=== PATIENT | female | born 1970 | race Caucasian/White ===

== ENCOUNTER → 2016-09-07 | Outpatient (CLI) | payer BC ==
[~2016-09-07] MED LIST: FLAGYL500 MG PO
== END ==
LOC: LAB 08:24
DX: A04.7 Enterocolitis due to Clostridium difficile (principal); E55.9 Vitamin D deficiency, unspecified; F33.1 Major depressive disorder, recurrent, moderate; F33.2 Major depressive disorder, recurrent severe without psychotic features; F41.1 Generalized anxiety disorder; K59.1 Functional diarrhea; M15.8 Other polyosteoarthritis; R19.7 Diarrhea, unspecified; R53.83 Other fatigue; R63.4 Abnormal weight loss; Z88.8 Allergy status to other drugs, medicaments and biological substances
CPT/HCPCS: 36415; 80061; 83704; 84550; 86039; 86140; 86431

== ENCOUNTER 2021-04-30 16:30 | Emergency (ER) | payer BC ==
[~2021-04-30 16:30] MED LIST changes: +CIPRO500 MG PO
[2021-04-30 18:02] LABS: HEMOGLOBIN 16.8 gm/dl (12.3-15.3); RED BLOOD COUNT 4.63 M/UL (4.00-5.10)
[2021-04-30 18:22] LABS: BUN/CREATININE RATIO 12 (0-10)
[2021-04-30] MEDS ORDERED: MECLIZINE HCL25 MG PO (22:19)
[2021-04-30] MEDS ORDERED: ZOFRAN4 MG PO (22:19)
== END 2021-04-30 22:30 | disposition left against medical advice (07) ==
LOC: ER1 16:30
PROVIDERS: Physician Assistant
DX: R42 Dizziness and giddiness (principal); R11.0 Nausea; Z88.8 Allergy status to other drugs, medicaments and biological substances
CPT/HCPCS: 71045; 80053; 81001; 82550; 82553; 83874; 84484; 85025; 93005; 96374; 96375; 96376; 99284; J2060; J2405; J7030